=== PATIENT | male | born 1990 | race Caucasian/White ===

== ENCOUNTER 2023-06-28 20:56 | Emergency (ER) | payer MEDICAID ==
[~2023-06-28] VITALS: Ht 180.3 cm; Wt 78.0 kg
[2023-06-28] MEDS ORDERED: LIDOCAINE 1%-EPI 1:100,000 20 ML VIAL ONE (22:39)
[2023-06-28] MEDS ORDERED: LIDOCAINE HCL/PF 1% 30 ML SDV ONE (22:41)
[2023-06-28 23:16] VITALS: BP 128/54; TEMP 98.3; O2SAT 98
== END 2023-06-28 23:17 | disposition home or self-care (01) ==
LOC: ER 21:03
DX: S01.81XA Laceration without foreign body of other part of head, initial encounter (principal); W50.0XXA Accidental hit or strike by another person, initial encounter; Y93.67 Activity, basketball; Y92.89 Other specified places as the place of occurrence of the external cause; Y99.8 Other external cause status
CPT/HCPCS: 12011; 99282; J3490